=== PATIENT | male | born 1960 | race Caucasian/White ===

== ENCOUNTER 2025-03-17 19:53 | Emergency (ER) | payer OTHER ==
[~2025-03-17] VITALS: Ht 185.4 cm; Wt 75.9 kg
[~2025-03-17 19:53] MED LIST: ACET-2247 PO; DOCU-385 PO; FAMO20 PO; LOSA-382 PO; MAGN-169 PO
[2025-03-17 21:01] VITALS: TEMP 98.3
[2025-03-17 21:57] LABS: PLATELET COUNT (AUTO) 163 K/uL (150-450); RED BLOOD CELL COUNT(AUTO) 4.06 MIL/uL (4.50-5.90); RED CELL DISTRIBUTION WIDTH 18.4 % (11.5-14.5); WHITE BLOOD COUNT (AUTO) 6.9 K/uL (4.5-11.0)
[2025-03-17 22:17] LABS: CALCIUM, TOTAL 9.1 mg/dL (8.8-10.5); CREATININE 0.68 mg/dL (0.60-1.30); GLOMERULAR FILTR. RATE CALC > 60 mL/min (>60); GLUCOSE,RANDOM 100 mg/dL (70-110); SODIUM SERUM 139 mmol/L (136-145); UREA NITROGEN, BLOOD 28 mg/dL (7-18)
[2025-03-17 22:25] LABS: TROPONIN I-HIGH SENSITIVITY 32 ng/L (<76)
[2025-03-18] MEDS ORDERED: SODIUM CHLORIDE 0.9% 100 ML ONE
[2025-03-18] MEDS ORDERED: IOHEXOL 350 MG/ML 100 ML VIAL ONE
[2025-03-18 04:16] VITALS: BP 143/77; PULSE 75; RESP 16; O2SAT 98
== END 2025-03-18 04:18 ==
LOC: EMS 19:53
DX: K43.9 Ventral hernia without obstruction or gangrene (principal); I10 Essential (primary) hypertension; Z98.890 Other specified postprocedural states; Z79.899 Other long term (current) drug therapy
CPT/HCPCS: 99285; 71045; 80048; 84484; 85025; 36415; 93005; 74174; 74175; Q9967; J7050